=== PATIENT | female | born 1955 | race Caucasian/White ===

== ENCOUNTER 2020-03-12 12:43 | Outpatient (REF) | payer MEDICAID, SELFPAY ==
--- NOTE | 2020-03-12 | MM_ITS ---
EXAMINATION: MM SCREENING DIGITAL BREAST TOMOSYNTHESIS, BILATERAL CLINICAL INFORMATION: Screening. Asymptomatic. The lifetime risk of breast cancer based on the Tyrer-Cuzick Model is 9.4%. COMPARISON: Mammography: August 16, 2018 and studies dating back to April 16, 2016 TECHNIQUE: Digital breast tomosynthesis is performed in both the craniocaudal and mediolateral oblique views along with computer-aided detection (CAD). Synthesized 2D images are generated from the tomosynthesis. FINDINGS: The breasts are almost entirely fatty (ACR BI-RADS breast composition Category a). There are no significant masses, abnormal calcifications, or other abnormalities. MM/MM tomosynthesis screening BI IMPRESSION: There are no significant changes from prior study. ASSESSMENT: BI-RADS 1: Negative RECOMMENDATION: Routine annual mammography screening. This patient's information was entered into a reminder system with a target due date for their next mammogram.
== END 2020-03-12 12:44 | disposition home or self-care (01) ==
LOC: HO.MAMMO 12:43
PROVIDERS: PCP Student in an Organized Health Care Education/Training Program; Visit Provider Student in an Organized Health Care Education/Training Program
DX: Z12.31 Encounter for screening mammogram for malignant neoplasm of breast (principal)
CPT/HCPCS: 77063; 77067

== ENCOUNTER 2021-04-09 11:01 | Outpatient (REF) | payer MEDICAID, SELFPAY ==
--- NOTE | ~2021-04-09 | MM_ITS ---
EXAMINATION: MM SCREENING DIGITAL BREAST TOMOSYNTHESIS, BILATERAL CLINICAL INFORMATION: Screening. Asymptomatic. The lifetime risk of breast cancer based on the Tyrer-Cuzick Model is 12%. COMPARISON: Mammography: 03/12/2020, 08/16/2018, 06/25/2017 TECHNIQUE: Digital breast tomosynthesis is performed in both the craniocaudal and mediolateral oblique views along with computer-aided detection (CAD). Synthesized 2D images are generated from the tomosynthesis. FINDINGS: The breasts are almost entirely fatty (ACR BI-RADS breast composition Category a). There are no significant masses, abnormal calcifications, or other abnormalities. Stromal and fibroglandular densities are stable. Scattered benign round and predominantly dermal calcifications bilateral posterior medial breasts. The axilla and skin contours are unremarkable. MM/MM tomosynthesis screening BI IMPRESSION: No mammographic evidence of malignancy. ASSESSMENT: BI-RADS 2: Benign RECOMMENDATION: Routine annual mammography screening. This patient's information was entered into a reminder system with a target due date for their next mammogram.
== END 2021-04-09 11:02 | disposition home or self-care (01) ==
LOC: HO.MAMMO 11:01
PROVIDERS: PCP Student in an Organized Health Care Education/Training Program; Visit Provider Student in an Organized Health Care Education/Training Program
DX: Z12.31 Encounter for screening mammogram for malignant neoplasm of breast (principal)
CPT/HCPCS: 77063; 77067

== ENCOUNTER 2021-10-16 14:05 | Outpatient (REF) | payer MEDICAID, SELFPAY ==
--- NOTE | 2021-10-16 16:46 | MHC.AU.MED ---
Medical Clearance for Hearing Instrumentation Date: 10/16/21 Patient Name: Ila Lyle Date of : 1955 Primary Care Provider: Referring Provider: Anahy Mckeon MD We have seen your patient on 10/16/21 and have determined that they are a candidate for amplification (See accompanying report). Specifically, they would benefit from: Hearing aid use in both ears There is a statute that addresses Medical Evaluation Requirements prior to fitting a patient with a hearing aid. According to [place] statute 265 CMR:6.03(1), (a) General. Except as provided in 265 CMR 6.03(1)(b), a cooperative manager shall not sell a hearing aid unless the prospective user has presented to the cooperative manager a written statement signed by a licensed physician that states that the patient's hearing loss has been medically evaluated and the patient may be considered a candidate for a hearing aid. The medical evaluation must have taken place within the preceding six months. Please note: Due to the [place] Statute referenced above, we cannot accept a signature other than that of a licensed physician. EARTH MOVING TECHNICIAN and PA signatures cannot be accepted. I am in agreement with the above recommendation. There is no medical contraindication for hearing instrumentation. Physician Signature Date Physician Name (Printed)
--- NOTE | 2021-10-17 14:38 | MHC.AU.ANO ---
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 Ila notes this change in hearing has been gradual and first noticed approximately 3 years ago. Hearing Handicap Inventory: HHIE SCORE: 32 Based on HHIE score, patient has: Severe perceived hearing handicap Ear History: Ear used on the phone: Right Ear Blocked/Full Sensation in Ear(s): History of occupational noise exposure?: No History: No Medical History: Medical History: High Blood Pressure Medication List: Atorvastatin, Amlodipine, Flonase, Aspirin, Calvium, Vitamin D3 Otoscopy: Right Ear: Mostly occluding cerumen Left Ear: Partially occluded with cerumen Tympanometry: Tympanometry performed due to: To assess integrity of the middle ear system Right Ear: Hypercompliant Middle Ear System (Type Ad) Left Ear: Normal Middle Ear System (Type A) Otoacoustic Emissions Did not test due to amount of cerumen Hearing Evaluation: Transducer(s) Used: Circumaural Headphones Bone Conduction Method: Conventional Audiometry Stimuli Used: Pure Tones Right Ear: Description of Hearing: Moderate dropping to profound sensorineural hearing loss with mixed component at 1000 Hz. Left Ear: Description of Hearing: Mild dropping to severe sensorineural hearing loss through all frequencies. Speech Recognition Threshold (SRT): Method Used: Monitored Live Voice Stimuli Used: Spondee Words Right Ear: 40 dB HL Left Ear: 30 dB HL Word Discrimination: Method: Recorded Lists Word Lists Used: NU-6 Right Ear: 80% at 80 dB HL Left Ear: 72% at 70 dB HL Interpretation of Results: Results indicate a significant asymmetric mild dropping to profound sensorineural hearing loss with the right ear thresholds being 10-30 dB poorer than the left. The amount of cerumen in the right ear may relate to this asymmetry, although the right ear loss is overall sensorineural in nature so it is difficult to determine how much the cerumen is decreasing thresholds. Patient was offered cerumen removal today, but prefers to contact her physician. Recommendations: Trial with amplification is recommended. Medical clearance from a physician is required before fitting. Follow-up with physician for cerumen removal. Following cerumen removal, advised Ila to schedule an Audiologic Re-evaluation and Hearing Aid Evaluation appointment. Audiological re-evaluation in one year. Diagnosis: Primary Diagnosis: H90.3 Bilateral Sensorineural Hearing Loss Services Performed: Comprehensive Audiological Evaluation (CPT 90004) Tympanometry (CPT 91410) Signature: Provider: Thomas Gonzales, ABI-A
== END 2021-10-16 14:06 | disposition home or self-care (01) ==
LOC: HO.SH 14:05
PROVIDERS: Visit Provider Student in an Organized Health Care Education/Training Program
DX: Z01.118 Encounter for examination of ears and hearing with other abnormal findings (principal); H90.3 Sensorineural hearing loss, bilateral
CPT/HCPCS: 92557; 92567